=== PATIENT | male | born 1980 | race Caucasian/White ===

== ENCOUNTER 2022-12-03 17:44 | Emergency (ER) | payer OTHER ==
[~2022-12-03] VITALS: Ht 188 cm; Wt 80.0 kg
[2022-12-03 18:56] LABS: BASOPHILS % (AUTO) 0.8 % (0.0-2.0); EOSINOPHILS % (AUTO) 2.2 % (1.0-6.0); HEMATOCRIT 30.9 % (41-53); LYMPHOCYTES # (AUTO) 2.8 K/uL (1.0-4.8); LYMPHOCYTES % (AUTO) 26.3 % (22.0-44.0); MEAN CORPUSCULAR HEMOGLOBIN 28.1 pg (26.0-34.0); MEAN CORPUSCULAR HGB CONC 32.2 G/dL (31.0-37.0); MEAN CORPUSCULAR VOLUME 87 fL (80-100); MONOCYTES # (AUTO) 0.8 K/uL (0.1-1.0); MONOCYTES % (AUTO) 7.4 % (2.0-9.0); NEUTROPHILS # (AUTO) 6.8 K/uL (1.8-7.7); NEUTROPHILS % (AUTO) 63.3 % (40.0-70.0); RED BLOOD CELL COUNT(AUTO) 3.55 MIL/uL (4.50-5.90); RED CELL DISTRIBUTION WIDTH 14.6 % (11.5-14.5)
[2022-12-03 18:59] LABS: ANION GAP 2 mmol/L (8-16); CALCIUM, TOTAL 8.5 mg/dL (8.8-10.5); CARBON DIOXIDE 35 mmol/L (22-29); CHLORIDE 101 mmol/L (98-107); CREATININE 0.96 mg/dL (0.60-1.30); GLUCOSE,RANDOM 93 mg/dL (70-110); POTASSIUM 3.9 mmol/L (3.5-5.1); SODIUM SERUM 138 mmol/L (136-145); UREA NITROGEN, BLOOD 17 mg/dL (7-18)
[2022-12-03 19:00] LABS: GLOMERULAR FILTR. RATE CALC > 60 mL/min (>60)
[2022-12-03 19:05] LABS: ALANINE AMINOTRANSFERASE 21 U/L (12-78); ALBUMIN 3.4 g/dL (3.4-5.0); ALKALINE PHOSPHATASE 102 U/L (46-116); ASPARTATE AMINOTRANSFERASE 25 U/L (15-37); BILIRUBIN,TOTAL 0.1 mg/dL (0.1-1.0); TOTAL PROTEIN, SERUM 7.9 g/dL (6.4-8.2)
[2022-12-03 19:20] LABS: PLATELET COUNT (AUTO) 319 K/uL (150-450)
[2022-12-03 21:00] VITALS: BP 141/89
[2022-12-03] MEDS ORDERED: BACITRACIN 0.9 GM PACKET OINTMENT TP ONE (21:00)
== END 2022-12-03 21:30 | disposition home or self-care (01) ==
LOC: EMS 17:48
DX: R60.0 Localized edema (principal); F10.20 Alcohol dependence, uncomplicated; F19.90 Other psychoactive substance use, unspecified, uncomplicated; Z59.00 Homelessness unspecified; Z88.5 Allergy status to narcotic agent; Y90.9 Presence of alcohol in blood, level not specified
CPT/HCPCS: 80053; 85025; 85379; 93970; 99284